=== PATIENT | female | born 1935 | race Caucasian/White ===

== ENCOUNTER 2016-11-04 10:00 | Inpatient (IN) | payer MEDICARE, OTHER ==
[2016-11-07] MEDS ORDERED: LOPRESSOR50 MG PO (13:06)
[2016-11-07] MEDS ORDERED: PRINIVIL10 MG PO (13:06)
[2016-11-07] MEDS ORDERED: GLUCOPHAGE1000 MG PO (13:06)
[2016-11-07] MEDS ORDERED: PROTONIX40 MG PO (13:07)
[2016-11-07] MEDS ORDERED: LEVAQUIN750 MG PO (13:08)
[2016-11-07] MEDS ORDERED: DETROL LA4 MG PO (13:08)
[2016-11-07] MEDS ORDERED: TUSSIONEX PENN115 ML PO (13:09)
[2016-11-07] MEDS ORDERED: ACETAMINOPHEN325 MG PO (13:09)
== END 2016-11-07 13:52 | disposition home health service (06) | DRG 871 ==
LOC: ER 10:00 → MED 12:31
PROVIDERS: ADMIT Internal Medicine
DX: A41.9 Sepsis, unspecified organism (principal); J18.9 Pneumonia, unspecified organism; N17.9 Acute kidney failure, unspecified; B37.49 Other urogenital candidiasis; R65.20 Severe sepsis without septic shock; I10 Essential (primary) hypertension; R53.1 Weakness; N32.81 Overactive bladder; E11.40 Type 2 diabetes mellitus with diabetic neuropathy, unspecified; F41.9 Anxiety disorder, unspecified; F32.9 Major depressive disorder, single episode, unspecified; Z90.710 Acquired absence of both cervix and uterus; Z79.84 Long term (current) use of oral hypoglycemic drugs; Z79.899 Other long term (current) drug therapy; Z88.5 Allergy status to narcotic agent; Z88.2 Allergy status to sulfonamides; Z83.3 Family history of diabetes mellitus; Z91.81 History of falling; R51 Headache
CPT/HCPCS: 36415; 87502; 94664; 97161-GP; 97165; J1650

== ENCOUNTER 2016-11-04 10:00 | Emergency (ER) | payer MEDICARE, OTHER | END 2016-11-04 12:30 | disposition critical access hospital (66) | LOC: ER 10:00 | DX: J18.1 Lobar pneumonia, unspecified organism (principal); N30.00 Acute cystitis without hematuria; N39.0 Urinary tract infection, site not specified; N17.9 Acute kidney failure, unspecified; E11.65 Type 2 diabetes mellitus with hyperglycemia; I10 Essential (primary) hypertension; F41.9 Anxiety disorder, unspecified; Z90.710 Acquired absence of both cervix and uterus; Z88.5 Allergy status to narcotic agent; Z88.2 Allergy status to sulfonamides | CPT/HCPCS: 36415; 87502; 96361; 96365; 96375 ==